=== PATIENT | female | born 1975 | race Caucasian/White ===

== ENCOUNTER 2017-09-09 13:30 | Inpatient (IN) ==
[2017-09-09 14:03] LABS: Basophils % 0.3 %; Eosinophils # 0.1 K/mcL (0.0-0.6); Eosinophils % 0.9 %; Hematocrit 40.3 % (35.3-44.9); Hemoglobin 13.8 g/dL (11.5-15.4); Immature Granulocytes % 0.7 % (0-4); Immature Platelets 1.1 % (1.1-6.1); Lymphocytes # 2.2 K/mcL (0.6-4.6); Lymphocytes % 19.6 %; Mean Corpuscular HGB Conc 34.2 g/dL (31.6-35.5); Mean Corpuscular Hemoglobin 31.3 pg (28.0-33.3); Mean Corpuscular Volume 91.4 fL (83.0-100.0); Mean Platelet Volume 8.5 fL (9.4-12.4); Monocytes # 0.6 K/mcL (0.0-1.3); Monocytes % 5.5 %; Neutrophils # 8.3 K/mcL (1.6-8.9); Platelet Count 369 K/mcL (140-400); Red Blood Count 4.41 M/mcL (3.82-4.97); Red Cell Distribution Width 12.7 % (11.5-14.5)
[2017-09-09 14:14] LABS: Bilirubin,Urine Negative (Negative); Blood,Urine Negative (Negative); Clarity,Urine Clear (Clear); Color,Urine Yellow (Yellow); Glucose,Urine (UA) Normal (Normal); Ketones,Urine Negative (Negative); Leukocyte Esterase,Urine Negative (Negative); Nitrite,Urine Negative (Negative); PH,Urine 6.5 pH Units (5.0-8.0); Protein,Urine Negative (Neg-Trace); Specific Gravity,Urine 1.013 (1.010-1.025); Urobilinogen,Urine Normal (Normal)
[2017-09-09 14:16] LABS: BUN/Creatinine Ratio 9 (6-26); Blood Urea Nitrogen 7 mg/dL (7-20); Calcium 9.2 mg/dL (8.6-10.8); Carbon Dioxide 22 mEq/L (19-29); Chloride 105 mEq/L (98-109); Glucose 95 mg/dL (70-99); Osmolality,Calculated 280 (280-300); Potassium 4.6 mEq/L (3.5-4.5); Sodium 136 mEq/L (136-145); eGFR For African Americans > 60 (> 60); eGFR For Non-African Americans > 60 (> 60)
[2017-09-09 14:18] LABS: Acetaminophen < 1.0 mcg/mL (10-30); Ethanol < 10 mg/dL (0-10); Salicylate < 5.0 mg/dL (15-30)
--- NOTE | 2017-09-09 14:21 | Emergency Department Note ---
Disposition Clinical Impression: Suicidal ideation Disposition: Admitted As Inpatient Condition: Fair Referrals: NONE,PCP [Primary Care Provider] - Forms: ED Satisfaction Letter Time of Disposition: 16:01 General Adult HPI - General Chief complaint: ED Psychiatric Symptoms Stated complaint: SI Time Seen by Provider: 09/09/17 13:40 Source: patient, family Mode of arrival: ambulatory Limitations: no limitations Nursing Notes Reviewed: Yes Vital Signs Reviewed: Yes - History of Present Illness HPI Narrative: 41-year-old female presenting to the emergency Department chief complaint suicidal ideation. Patient states she has been feeling this way for the past week. She did have a specific plan where she was going to take 100 ibuprofen or Tylenol. Patient denies ever having this issue before. She denies ever being hospitalized for psychiatric complaints. She denies any homicidal ideation. Patient states she might have auditory hallucinations because she feels like people in her home are talking about her when they are not. But denies visual hallucinations. She denies any new or different medications. She is currently on Remeron. Patient states her only medical concern is sore throat. She went to urgent care last week and given Omnicef for an ear infection and upper respiratory infection. She states she is still currently taking it does not feel like it is helping. Physical exam shows dry mucous membranes she states she has not been able to eat or drink well at home due to feeling depressed. Patient otherwise has no complaints at this time. She has no known past medical history. Pain Scale: 5 - Related Data Home Medications Medication Instructions Recorded Confirmed Ativan 10/03/15 Mirtazapine [Remeron] 45 mg PO 02/21/16 Paroxetine [Paxil] 02/21/16 Previous Rx's Medication Instructions Recorded Fluticasone Propionate Nasal 1 spray NS DAILY #1 bottle 10/03/15 [Flonase] Azithromycin [Azithromycin 6-Tab 250 mg PO PER PKG DI #6 tab 02/21/16 Pack] Fluticasone Propionate Nasal 2 spray NS BID #1 bottle 02/21/16 [Flonase] Promethazine/Codeine 5 ml PO HS #60 syrup 02/21/16 [Phenergan/Codeine] Ondansetron [Zofran] 8 mg PO TID PRN #10 tablet 11/17/16 Cefdinir [Omnicef] 600 mg PO DAILY #20 capsule 09/03/17 Fluconazole [Diflucan] 150 mg PO Q72H #2 tab 09/03/17 Guaifenesin/Dm/Pseudoephedrine 1 each PO Q4-6H PRN #30 tablet 09/03/17 [Capmist Dm Tablet] Mirtazapine [Remeron] 45 mg PO HS #10 tablet 09/03/17 Allergies Allergy/AdvReac Type Severity Reaction Status Date / Time No Known Allergies Allergy Verified 09/09/17 13:37 All systems ED: reviewed and negative except as stated. Constitutional: Denies: fever, chills Eyes: Reports: as per HPI ENT ED: Reports: throat pain Cardiovascular: Denies: chest pain, palpitations Respiratory: Denies: dyspnea, wheezes Gastrointestinal: Denies: abdominal pain, nausea, vomiting Genitourinary: Reports: as per HPI Musculoskeletal: Reports: as per HPI Integumentary: Denies: rash, abrasion, lesions Neurological: Reports: as per HPI Psychiatric: Reports: as per HPI Endocrine: Reports: as per HPI Hematological/Lymphatic: Reports: as per HPI Allergic/Immunologic: Reports: as per HPI Past Medical History - Past Medical History Attestation: Yes The following information was validated with the patient. Medical history: Reports: arthritis, hepatitis, hypertension Psychiatric history: Reports: anxiety, ADHD, depression - Social History Smoking Status: Current every day smoker Smokeless Tobacco Status: No Alcohol use: Reports: none Drug use: Reports: none Physical Exam - General Limitations: no limitations General appearance: alert, in no apparent distress - Head Head exam: atraumatic, normocephalic, normal inspection - Eye Eye exam: Present: normal appearance. Absent: scleral icterus, conjunctival injection - ENT ENT exam: normal exam, mucous membranes dry - Neck Neck exam: Present: normal inspection, full ROM. Absent: tenderness, meningismus - Chest Chest inspection: Present: normal inspection, symmetric chest wall rise. Absent : tenderness, rash - Respiratory Respiratory exam: Present: normal lung sounds bilaterally. Absent: respiratory distress, wheezes - Cardiovascular Cardiovascular exam: Present: regular rate (I appreciate the tachycardia noted in the triage notes although the patient is non-tachycardic in the room at this time.), normal rhythm, normal heart sounds - Abdominal Exam Abdominal exam: Present: soft, Non-Tender. Absent: distention, guarding, rebound - Extremities Exam Extremities exam: Present: normal inspection, full ROM - Neurological Exam Neurological exam: Present: alert, oriented X3 - Psychiatric Psychiatric exam: Present: depressed, flat affect, suicidal ideation. Absent: homicidal ideation - Skin Skin exam: Present: warm, intact Course Course Narrative: 41-year-old female presenting to the emergency department complaining of suicidal ideation. Patient is medically clear at this time. Vital signs are stable. She is alert and oriented 3 in the room. We will obtain basic lab work and then consult to 1A to determine patient's disposition. Patient agrees with this plan. - Reevaluation(s) Reevaluation #1: 1A has assessed the patient and decided to bring her in for inpatient psychiatric workup. Patient's alert and oriented 3 in the room with stable vital signs at this time. Accepting physician will be Dr. Gilliland Vital Signs Temperature 98.5 F 09/09/17 13:34 Pulse Rate 103 09/09/17 13:34 Respiratory Rate 16 09/09/17 13:34 Blood Pressure 139/93 09/09/17 13:34 O2 Sat by Pulse Oximetry 98 09/09/17 13:34 Temperature 98.5 F 09/09/17 13:34 Pulse Rate 103 09/09/17 13:34 Respiratory Rate 16 09/09/17 13:34 Blood Pressure 139/93 09/09/17 13:34 O2 Sat by Pulse Oximetry 98 09/09/17 13:34 Oxygen Delivery Oxygen Delivery Room Air Medical Decision Making - Lab Data Result diagrams: 09/09/17 13:57 09/09/17 13:57 Lab Results 09/09/17 09/09/17 09/09/17 Range/Units 13:57 13:57 14:06 WBC 11.3 H (4.3-11.1) K/mcL RBC 4.41 (3.82-4.97) M/mcL Hgb 13.8 (11.5-15.4) g/dL Hct 40.3 (35.3-44.9) % MCV 91.4 (83.0-100.0) fL MCH 31.3 (28.0-33.3) pg MCHC 34.2 (31.6-35.5) g/dL RDW 12.7 (11.5-14.5) % Plt Count 369 (140-400) K/mcL MPV 8.5 L (9.4-12.4) fL Immature Gran % 0.7 (0-4) % Seg Neutrophils % 73.0 % Lymphocytes % 19.6 % Monocytes % 5.5 % Eosinophils % 0.9 % Basophils % 0.3 % Neutrophils # 8.3 (1.6-8.9) K/mcL Lymphocytes # 2.2 (0.6-4.6) K/mcL Monocytes # 0.6 (0.0-1.3) K/mcL Eosinophils # 0.1 (0.0-0.6) K/mcL Basophils # 0.0 (0.0-0.2) K/mcL Immature Plt Fraction 1.1 (1.1-6.1) % Sodium 136 (136-145) mEq/L Potassium 4.6 H (3.5-4.5) mEq/L Chloride 105 (98-109) mEq/L Carbon Dioxide 22 (19-29) mEq/L BUN 7 (7-20) mg/dL Creatinine 0.80 (0.57-1.11) mg/dL Est GFR ( Amer) > 60 (> 60) Est GFR (Non-Af Amer) > 60 (> 60) BUN/Creatinine Ratio 9 (6-26) Glucose 95 (70-99) mg/dL Calculated Osmolality 280 (280-300) Calcium 9.2 (8.6-10.8) mg/dL Urine Color Yellow (Yellow) Urine Clarity Clear (Clear) Urine pH 6.5 (5.0-8.0) pH Units Ur Specific [place] 1.013 (1.010-1.025) Urine Protein Negative (Neg-Trace) mg/dL Urine Glucose (UA) Normal (Normal) mg/dL Urine Ketones Negative (Negative) mg/dL Urine Blood Negative (Negative) Urine Nitrite Negative (Negative) Urine Bilirubin Negative (Negative) Urine Urobilinogen Normal (Normal) mg/dL Ur Leukocyte Esterase Negative (Negative) Urine Test (Negative) Salicylates < 5.0 L (15-30) mg/dL Urine Opiates Screen (Rtwtiw=599) ng/mL Acetaminophen < 1.0 L (10-30) mcg/mL Ur Barbiturates Screen (Ewjrjz=728) ng/mL Ur Phencyclidine Scrn (Cutoff=25) ng/mL Ur Amphetamines Screen (Ngbsqx=6770) ng/mL U Benzodiazepines Scrn (Rzirhm=757) ng/mL Urine Cocaine Screen (Cutoff= 300) ng/mL U Marijuana (THC) Screen (Cutoff = 50) ng/mL Ethyl Alcohol < 10 (0-10) mg/dL 09/09/17 09/09/17 Range/Units 14:06 14:06 WBC (4.3-11.1) K/mcL RBC (3.82-4.97) M/mcL Hgb (11.5-15.4) g/dL Hct (35.3-44.9) % MCV (83.0-100.0) fL MCH (28.0-33.3) pg MCHC (31.6-35.5) g/dL RDW (11.5-14.5) % Plt Count (140-400) K/mcL MPV (9.4-12.4) fL Immature Gran % (0-4) % Seg Neutrophils % % Lymphocytes % % Monocytes % % Eosinophils % % Basophils % % Neutrophils # (1.6-8.9) K/mcL Lymphocytes # (0.6-4.6) K/mcL Monocytes # (0.0-1.3) K/mcL Eosinophils # (0.0-0.6) K/mcL Basophils # (0.0-0.2) K/mcL Immature Plt Fraction (1.1-6.1) % Sodium (136-145) mEq/L Potassium (3.5-4.5) mEq/L Chloride (98-109) mEq/L Carbon Dioxide (19-29) mEq/L BUN (7-20) mg/dL Creatinine (0.57-1.11) mg/dL Est GFR ( Amer) (> 60) Est GFR (Non-Af Amer) (> 60) BUN/Creatinine Ratio (6-26) Glucose (70-99) mg/dL Calculated Osmolality (280-300) Calcium (8.6-10.8) mg/dL Urine Color (Yellow) Urine Clarity (Clear) Urine pH (5.0-8.0) pH Units Ur Specific [place] (1.010-1.025) Urine Protein (Neg-Trace) mg/dL Urine Glucose (UA) (Normal) mg/dL Urine Ketones (Negative) mg/dL Urine Blood (Negative) Urine Nitrite (Negative) Urine Bilirubin (Negative) Urine Urobilinogen (Normal) mg/dL Ur Leukocyte Esterase (Negative) Urine Test Negative (Negative) Salicylates (15-30) mg/dL Urine Opiates Screen Negative (Xzdojo=856) ng/mL Acetaminophen (10-30) mcg/mL Ur Barbiturates Screen Negative (Slsujo=561) ng/mL Ur Phencyclidine Scrn Negative (Cutoff=25) ng/mL Ur Amphetamines Screen Negative (Fcsavd=3633) ng/mL U Benzodiazepines Scrn Negative (Cwtpwi=079) ng/mL Urine Cocaine Screen Negative (Cutoff= 300) ng/mL U Marijuana (THC) Screen Negative (Cutoff = 50) ng/mL Ethyl Alcohol (0-10) mg/dL
[2017-09-09 14:24] LABS: Amphetamine Screen,Urine Negative ng/mL (Cutoff=1000); Barbiturate Screen,Urine Negative ng/mL (Cutoff=200); Benzodiazepines Screen,Urine Negative ng/mL (Cutoff=200); Cannabinoid Screen,Urine Negative ng/mL (Cutoff = 50); Cocaine Screen,Urine Negative ng/mL (Cutoff= 300); Opiate Screen,Urine Negative ng/mL (Cutoff=300); Phencyclidine Screen,Urine Negative ng/mL (Cutoff=25)
--- NOTE | 2017-09-09 14:45 | Emergency Department Note ---
START Narrative - START START: I examined this patient and my medical decision-making was reviewed with the Resident Physician. I agree with the documented findings, disposition and treatment plan as described except to the extent set forth below. Suicidal ideation--was gonna OD on tylenol and motrin pt tearful needs 1A psych evaluation possible placement all labs ok vss afebrile
[2017-09-09] MEDS ORDERED: [UNRECOGNIZED DRUG - OTHER] PO PRN (16:46)
[2017-09-09] MEDS ORDERED: *HR* LORazepam 1 MG TABLET PO PRN (16:47)
[2017-09-09] MEDS ORDERED: *HR* LORazepam 2 MG/ML VIAL IM PRN (16:47)
[2017-09-09] MEDS ORDERED: Mag Hydrox/Al Hydrox/Simeth 30 ML UDC PO PRN (16:47)
[2017-09-09] MEDS ORDERED: MOM Conc 10 ML UD.LIQ PO PRN (16:47)
[2017-09-09] MEDS ORDERED: Haloperidol Lactate 5 MG/ML VIAL IM PRN (16:47)
[2017-09-09] MEDS: Nicotine 14 MG PATCH.TD24 TD SCH (17:27)
[2017-09-09] MEDS: Mirtazapine 15 MG TABLET PO SCH (21:41)
[2017-09-09] MEDS: Ibuprofen 400 MG TABLET PO PRN (21:42)
[2017-09-09] MEDS: traZODone 50 MG TABLET PO PRN (21:43)
[2017-09-10] MEDS: traZODone 50 MG TABLET PO PRN ×2 (02:07→19:53)
[2017-09-10] MEDS: hydrOXYzine pamoate 25 MG CAPSULE PO PRN ×2 (02:07→19:57)
[2017-09-10] MEDS: Cefdinir 300 MG CAPSULE PO SCH (09:09)
[2017-09-10] MEDS: Famotidine 20 MG TABLET PO SCH (09:10)
[2017-09-10] MEDS: Nicotine 14 MG PATCH.TD24 TD SCH (09:10)
[2017-09-10] MEDS: Ibuprofen 400 MG TABLET PO PRN ×2 (09:15→19:57)
--- NOTE | 2017-09-10 10:12 | Psychiatry History & Physical ---
Date of Encounter: 09/10/17 Time of Encounter: 09:30 History of Present Illness Patient Stated Chief Complaint: Suicidal ideation Medicare Admission Attestation: For traditional Medicare patients the provided hospital inpatient services are reasonable and necessary and in the case of services not specified as inpatient -only under 42 CFR 419.22 (n), that they are appropriately provided as inpatient services in accordance 42 CFR 412.3. For Critical Access Hospital the patient may reasonably be expected to be discharged or transferred to a hospital within 96 hours after admission to the Critical Access Hospital. Admitted From: Emergency Dept History of Present Illness: Ms. Chirinos is a 41 year old female admitted from the emergency department for depression and suicidal ideation. This is the first psychiatric admission for this patient who reports increased stress after being homeless and lost custody of HER-2 children to her aunt's. Patient is having significant relationship and family stress in addition to being homeless. 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 Patient is unemployed, she has college education and denies any current use of drugs or alcohol. Patient had no previous hospitalization, but had outpatient treatment and was given mirtazapine. She had a history of treatment was Cymbalta and with very effective then lost her insurance. Patient also reports recurrent nightmares that interrupts her sleep. She endorsed suicidal ideation with plans of overdosing on medication. Past Med Surg Social Fam HX - Past Medical History Medical history: arthritis, hepatitis, hypertension - Past Psychiatric History Psychiatric history: Reports: depression. Denies: previous psychiatric hospitalization - Past Surgical History Surgical History: non-contributory - Social History Smoking Status: Current every day smoker Smokeless Tobacco Status: No Alcohol use: none Drug use: none Medications & Allergies Cefdinir [Omnicef] 600 mg PO DAILY #20 capsule 09/03/17 [Rx] Buprenorphine HCl/Naloxone HCl [Buprenorphin-Naloxon 8-2 mg Sl] 1.75 tab SL DAILY 09/09/17 [History] Guaifenesin/Dm/Pseudoephedrine [Capmist Dm Tablet] 1 tab PO Q4-6H PRN 09/09/17 [ History] Mirtazapine [Remeron] 45 mg PO HS 09/09/17 [History] Ranitidine HCl [Zantac] 300 mg PO DAILY 09/09/17 [History] 3 Allergy/AdvReac Type Severity Reaction Status Date / Time No Known Allergies Allergy Verified 09/09/17 13:37 Review of Systems Psychiatric: Reports: depression, anxiety, suicidal ideation, hopelessness Mental Status Exam Patient orientation: Yes Person, Yes Time, Yes Place Level of alertness: Alert Patient appearance: Appropriate, Well Groomed Behavior: calm, cooperative, anxious, dramatic Psychomotor activity: Normal Eye contact: Minimal Contact Mood description: Angry, Depressed Affect description: congruent with mood, constricted Speech pattern: Normal rate, Normal rhythm, Normal tone Speech volume: Normal Thought process: Linear, Goal Oriented Thought content: Yes Suicidal ideation, No Homicidal ideation, No Overt delusions Perceptual disturbances: No Auditory hallucinations, No Visual hallucinations Attention span: Capable of Focused Attention Memory description: Grossly Intact Patient reliability: Reliable Historian Intelligence estimate: Average Judgment: Limited Insight: Partial Results - Vital Signs Vital signs: Temp Pulse Resp BP Pulse Ox 98.1 F 81 18 128/82 98 09/10/17 08:32 09/10/17 08:32 09/10/17 08:32 09/10/17 08:32 09/09/17 13:34 - Labs Labs: Laboratory Last Values WBC 11.3 K/mcL (4.3-11.1) H 09/09/17 13:57 RBC 4.41 M/mcL (3.82-4.97) 09/09/17 13:57 Hgb 13.8 g/dL (11.5-15.4) 09/09/17 13:57 Hct 40.3 % (35.3-44.9) 09/09/17 13:57 MCV 91.4 fL (83.0-100.0) 09/09/17 13:57 MCH 31.3 pg (28.0-33.3) 09/09/17 13:57 MCHC 34.2 g/dL (31.6-35.5) 09/09/17 13:57 RDW 12.7 % (11.5-14.5) 09/09/17 13:57 Plt Count 369 K/mcL (140-400) 09/09/17 13:57 MPV 8.5 fL (9.4-12.4) L 09/09/17 13:57 Immature Gran % 0.7 % (0-4) 09/09/17 13:57 Seg Neutrophils % 73.0 % 09/09/17 13:57 Lymphocytes % 19.6 % 09/09/17 13:57 Monocytes % 5.5 % 09/09/17 13:57 Eosinophils % 0.9 % 09/09/17 13:57 Basophils % 0.3 % 09/09/17 13:57 Neutrophils # 8.3 K/mcL (1.6-8.9) 09/09/17 13:57 Lymphocytes # 2.2 K/mcL (0.6-4.6) 09/09/17 13:57 Monocytes # 0.6 K/mcL (0.0-1.3) 09/09/17 13:57 Eosinophils # 0.1 K/mcL (0.0-0.6) 09/09/17 13:57 Basophils # 0.0 K/mcL (0.0-0.2) 09/09/17 13:57 Immature Plt Fraction 1.1 % (1.1-6.1) 09/09/17 13:57 Sodium 136 mEq/L (136-145) 09/09/17 13:57 Potassium 4.6 mEq/L (3.5-4.5) H 09/09/17 13:57 Chloride 105 mEq/L (98-109) 09/09/17 13:57 Carbon Dioxide 22 mEq/L (19-29) 09/09/17 13:57 BUN 7 mg/dL (7-20) 09/09/17 13:57 Creatinine 0.80 mg/dL (0.57-1.11) 09/09/17 13:57 Est GFR ( Amer) > 60 (> 60) 09/09/17 13:57 Est GFR (Non-Af Amer) > 60 (> 60) 09/09/17 13:57 BUN/Creatinine Ratio 9 (6-26) 09/09/17 13:57 Glucose 95 mg/dL (70-99) 09/09/17 13:57 Calculated Osmolality 280 (280-300) 09/09/17 13:57 Calcium 9.2 mg/dL (8.6-10.8) 09/09/17 13:57 Urine Color Yellow (Yellow) 09/09/17 14:06 Urine Clarity Clear (Clear) 09/09/17 14:06 Urine pH 6.5 pH Units (5.0-8.0) 09/09/17 14:06 Ur Specific [place] 1.013 (1.010-1.025) 09/09/17 14:06 Urine Protein Negative mg/dL (Neg-Trace) 09/09/17 14:06 Urine Glucose (UA) Normal mg/dL (Normal) 09/09/17 14:06 Urine Ketones Negative mg/dL (Negative) 09/09/17 14:06 Urine Blood Negative (Negative) 09/09/17 14:06 Urine Nitrite Negative (Negative) 09/09/17 14:06 Urine Bilirubin Negative (Negative) 09/09/17 14:06 Urine Urobilinogen Normal mg/dL (Normal) 09/09/17 14:06 Ur Leukocyte Esterase Negative (Negative) 09/09/17 14:06 Urine Test Negative (Negative) 09/09/17 14:06 Salicylates < 5.0 mg/dL (15-30) L 09/09/17 13:57 Urine Opiates Screen Negative ng/mL (Mqbwxe=147) 09/09/17 14:06 Acetaminophen < 1.0 mcg/mL (10-30) L 09/09/17 13:57 Ur Barbiturates Screen Negative ng/mL (Ytvjpr=341) 09/09/17 14:06 Ur Phencyclidine Scrn Negative ng/mL (Cutoff=25) 09/09/17 14:06 Ur Amphetamines Screen Negative ng/mL (Wudapt=2212) 09/09/17 14:06 U Benzodiazepines Scrn Negative ng/mL (Uksfvm=780) 09/09/17 14:06 Urine Cocaine Screen Negative ng/mL (Cutoff= 300) 09/09/17 14:06 U Marijuana (THC) Screen Negative ng/mL (Cutoff = 50) 09/09/17 14:06 Ethyl Alcohol < 10 mg/dL (0-10) 09/09/17 13:57 Assessment and Plan (1) Suicidal ideation Current visit: Yes Status: Acute Plan: Admit inpatient for safety and stabilization, Close observation, Suicide Precautions per unit protocol, Encourage participation in unit milieu, Group Therapy, Monitor sleep, Monitor appetite Additional Plan: 1. Prazosin 2 mg at at bedtime for night terrors 2. Cymbalta 60 mg daily Benefits and side effects were discussed as patient, she is agreeable to start, we will monitor. Risks, benefits, side effects, alternatives discussed w/pt: Yes Patient agreeable to treatment: Yes
[2017-09-10] MEDS: (Buprenorphine Hcl/Naloxone Hcl [Buprenorphin-Naloxon) SL SCH (15:30)
[2017-09-10] MEDS: Mirtazapine 15 MG TABLET PO SCH (19:52)
[2017-09-11] MEDS: Cefdinir 300 MG CAPSULE PO SCH (08:46)
[2017-09-11] MEDS: Nicotine 14 MG PATCH.TD24 TD SCH (08:47)
[2017-09-11] MEDS: Famotidine 20 MG TABLET PO SCH (08:49)
[2017-09-11] MEDS: (Buprenorphine Hcl/Naloxone Hcl [Buprenorphin-Naloxon) SL SCH (08:51)
--- NOTE | 2017-09-11 13:55 | Psychiatry Progress Note ---
Date of Encounter: 09/11/17 Time of Encounter: 13:52 Subjective Interval history: Patient is seen for follow-up. She continued to endorse suicidal ideation. She tolerated medication changes and denies any side effects sedation. She is sleeping extended hours. Continued to feel overwhelmed by her living situation and not clear about future plans. She is working with social insurance adviser to find temporary living situation. Review of Systems Psychiatric: Reports: depression, anxiety, suicidal ideation, hopelessness Objective: Exam Patient orientation: Yes Person, Yes Time, Yes Place Level of alertness: Alert, Sedated Patient appearance: Appropriate, Well Groomed Behavior: calm, cooperative Psychomotor activity: Normal Eye contact: Maintains Eye Contact Mood description: Euthymic/stable Affect description: congruent with mood, full range Speech pattern: Normal rate, Normal rhythm, Normal tone Speech volume: Normal Thought process: Linear, Goal Oriented Thought content: Yes Suicidal ideation, No Homicidal ideation, No Overt delusions Perceptual disturbances: No Auditory hallucinations, No Visual hallucinations Judgment: Fair Insight: Partial Results - Vital Signs Vital Signs: Temp Pulse Resp BP Pulse Ox 97.4 F L 99 18 135/84 98 09/11/17 08:10 09/11/17 08:10 09/11/17 08:10 09/11/17 08:10 09/09/17 13:34 Assessment and Plan (1) Suicidal ideation Current visit: Yes Status: Acute Plan: Continue hospitalization, Close observation, Suicide Precautions per unit protocol, Encourage participation in unit milieu, Group Therapy, Monitor sleep, Monitor appetite Risks, benefits, side effects, alternatives discussed w/pt: Yes Patient agreeable to treatment: Yes Consult Discharge Plan - Plan Referrals: NONE,PCP [Primary Care Provider] -
[2017-09-11] MEDS: Mirtazapine 15 MG TABLET PO SCH (20:16)
[2017-09-11] MEDS: Ibuprofen 400 MG TABLET PO PRN (20:16)
[2017-09-12] MEDS: Cefdinir 300 MG CAPSULE PO SCH (08:36)
[2017-09-12] MEDS: Famotidine 20 MG TABLET PO SCH (08:37)
[2017-09-12] MEDS: Nicotine 14 MG PATCH.TD24 TD SCH (08:41)
--- NOTE | 2017-09-12 10:16 | Psychiatry Progress Note ---
Date of Encounter: 09/12/17 Time of Encounter: 10:07 Subjective Interval history: Patient seen for follow-up. She denies suicidal ideation. She continued to be overwhelmed by her living situation. She is adjusting the medication and continued to complain of stiffness or sedation but her anxiety is much less. She denies having any nights terrors. She feels not ready for discharge, her status will be changed to voluntary admission. bed worker is working on her discharge plans. She denies any side effects of medication. Review of Systems Psychiatric: Reports: depression, anxiety, suicidal ideation, hopelessness Objective: Exam Patient orientation: Yes Person, Yes Time, Yes Place Level of alertness: Alert Patient appearance: Appropriate, Well Groomed Behavior: calm, cooperative, anxious Psychomotor activity: Normal Eye contact: Maintains Eye Contact Mood description: Euthymic/stable, Anxious Affect description: congruent with mood, labile Speech pattern: Normal rate, Normal rhythm, Normal tone Speech volume: Normal Thought process: Linear, Goal Oriented Thought content: No Suicidal ideation, No Homicidal ideation, No Overt delusions Perceptual disturbances: No Auditory hallucinations, No Visual hallucinations Judgment: Fair Insight: Partial Results - Vital Signs Vital Signs: Temp Pulse Resp BP Pulse Ox 98.2 F 101 16 128/84 98 09/12/17 08:59 09/12/17 08:59 09/12/17 08:59 09/12/17 08:59 09/09/17 13:34 Assessment and Plan (1) Suicidal ideation Current visit: Yes Status: Acute Plan: Continue hospitalization, Close observation, Suicide Precautions per unit protocol, Encourage participation in unit milieu, Group Therapy, Monitor sleep, Monitor appetite Risks, benefits, side effects, alternatives discussed w/pt: Yes Patient agreeable to treatment: Yes Consult Discharge Plan - Plan Referrals: [facility] [Outside] (To establish in services, you may walk -in any Sunday through Sunday from 8:00am 12:00pm or 1:00pm 4:00pm. When you come in, you will be completing paperwork, meeting with an barrel lathe operator inside , and developing a treatment plan. You will receive follow- up appointments for on-going mental health services, which could include community support, individual counseling, groups and/or psychiatric medication management. You may also be referred to see the primary care provider in the clinic if needed as well. Please bring your insurance card, photo ID and medication list when you come in the first time. )
[2017-09-12] MEDS: Mirtazapine 15 MG TABLET PO SCH (20:54)
[2017-09-12] MEDS: hydrOXYzine pamoate 25 MG CAPSULE PO PRN (20:54)
[2017-09-12] MEDS: Ibuprofen 400 MG TABLET PO PRN (20:55)
[2017-09-13 09:03] VITALS: BP 118/76
[2017-09-13] MEDS: Nicotine 14 MG PATCH.TD24 TD SCH (09:29)
[2017-09-13] MEDS: Famotidine 20 MG TABLET PO SCH (09:30)
[2017-09-13] MEDS: Cefdinir 300 MG CAPSULE PO SCH (09:30)
--- NOTE | 2017-09-13 12:44 | Discharge Summary ---
Date of Encounter: 09/13/17 Time of Encounter: 12:39 Diagnosis - Discharge Diagnosis (1) Suicidal ideation Status: Acute Medications - Discharge Medications Prescriptions: DULoxetine [Cymbalta] 60 mg PO DAILY #30 capsule. Mirtazapine [Remeron] 45 mg PO HS #30 tablet Prazosin [Minipress] 2 mg PO HS #30 capsule Cefdinir [Omnicef] 600 mg PO DAILY #20 capsule 09/03/17 [Rx] Buprenorphine HCl/Naloxone HCl [Buprenorphin-Naloxon 8-2 mg Sl] 1.75 tab SL DAILY 09/09/17 [History] Guaifenesin/Dm/Pseudoephedrine [Capmist Dm Tablet] 1 tab PO Q4-6H PRN 09/09/17 [ History] Ranitidine HCl [Zantac] 300 mg PO DAILY 09/09/17 [History] DULoxetine [Cymbalta] 60 mg PO DAILY #30 capsule. 09/13/17 [Rx] Mirtazapine [Remeron] 45 mg PO HS #30 tablet 09/13/17 [Rx] Prazosin [Minipress] 2 mg PO HS #30 capsule 09/13/17 [Rx] 3 Allergy/AdvReac Type Severity Reaction Status Date / Time No Known Allergies Allergy Verified 09/09/17 13:37 Provider Date of admission: 09/09/17 16:07 Primary care physician: PCP NONE Discharging clinician: Joseph Lloyd Assessment and Plan - Patient/Caregiver Discharge Instructions Activity: resume usual activities as tolerated Diet: regular diet - Follow up Plan Follow up with: Maira Rivera [facility] [Outside] (To establish in services, you may walk -in any Sunday through Sunday from 8:00am 12:00pm or 1:00pm 4:00pm. When you come in, you will be completing paperwork, meeting with an money order clerk , and developing a treatment plan. You will receive follow- up appointments for on-going mental health services, which could include community support, individual counseling, groups and/or psychiatric medication management. You may also be referred to see the primary care provider in the clinic if needed as well. Please bring your insurance card, photo ID and medication list when you come in the first time. ) Functional capacity at discharge: independent ambulation Overall status at discharge: Stable Disposition: Home, Self-Care Hospital Course Hospital course: Ms. Chirinos is a 41 year old female admitted from the emergency department for depression and suicidal ideation. For details of the admission please see H&P On the units patient medication were adjusted, added duloxetine 60 mg daily, and prazosin 2 mg at bedtime for nightmares in addition to mirtazapine. Patient tolerated medication changes and responded positively, she reported improved sleep and less unexcited. She denied suicidal ideation she minimally participated in groups. Her main stressor was living situation and oncology social work was able to locate appropriate assisted and patient was agreeable to be discharged to that assisted. On discharge patient was medically stable tolerated the medication without any side effects, not suicidal and aware of treatment plan and follow [employer]. She is discharged in a stable condition. - Time Spent with Patient Total time spent providing and/or coordinating discharge services: Greater than 30 minutes Quality - Multiple Antipsychotics Patient discharged on 2 or more antipsychotic medications: No Procedures - Procedures Procedures: Medication Management, Crisis Stabilization, Supportive Therapy, Group Therapy, Psychoeducational Therapy Mental Status Exam - Mental Status Exam Patient orientation: Yes Person, Yes Time, Yes Place Level of alertness: Alert Patient appearance: Appropriate, Well Groomed Behavior: calm, cooperative Psychomotor activity: Normal Eye contact: Maintains Eye Contact Mood description: Euthymic/stable, Anxious Affect description: congruent with mood, full range, anxious Speech pattern: Normal rate, Normal rhythm, Normal tone Speech Volume: Normal Thought process: Linear, Goal Oriented Thought Content: No Suicidal ideation, No Homicidal ideation, No Overt delusions Perceptual Disturbances: No Auditory hallucinations, No Visual hallucinations Judgment: Limited Insight: Partial
== END 2017-09-13 14:05 | disposition home or self-care (01) | DRG 754 ==
LOC: EMEROO 13:30 → SUATTDRO 16:07 → 1ANU 16:07
PROVIDERS: ADMIT Psychiatry & Neurology Psychiatry; ATTEND Psychiatry & Neurology Psychiatry